=== PATIENT | female | born 1955 | race Two or more races ===

== ENCOUNTER 2021-11-13 08:20 | Emergency (ER) | payer OTHER ==
[~2021-11-13] VITALS: Ht 157.5 cm; Wt 46.7 kg
[2021-11-13] MEDS ORDERED: TOPROL XL50 M1 PO (08:32)
[2021-11-13] MEDS ORDERED: CALCIUM 600 +1 EAC3 PO (08:32)
[2021-11-13] MEDS ORDERED: CAMBIA50 MG PO (08:33)
[2021-11-13] MEDS ORDERED: SIMVASTATIN5 MG PO (08:34)
[2021-11-13] MEDS ORDERED: NORFLEX100MG PO (12:35)
[2021-11-13] MEDS ORDERED: KETO10TA2 PO (12:35)
== END 2021-11-13 13:08 | disposition home or self-care (01) ==
LOC: ER 08:20
DX: M54.89 Other dorsalgia (principal); M25.551 Pain in right hip; I10 Essential (primary) hypertension